=== PATIENT | male | born 2000 | race Caucasian/White ===

== ENCOUNTER 2022-05-23 09:59 | Outpatient (CLI) | payer OTHER | END 2022-05-23 10:00 | disposition home or self-care (01) | LOC: TBSIIMAG 09:59 | PROVIDERS: ATTEND Orthopaedic Surgery | DX: M23.92 Unspecified internal derangement of left knee (principal); M76.52 Patellar tendinitis, left knee; S76.122A Laceration of left quadriceps muscle, fascia and tendon, initial encounter ==